=== PATIENT | male | born 1985 | race Caucasian/White ===

== ENCOUNTER 2018-03-11 02:16 | Emergency (ER) | payer SELFPAY ==
[2018-03-11 02:26] VITALS: BP 154/96; TEMP 98.1; BMI 32.3
--- NOTE | 2018-03-11 02:34 | PDOC ---
History of Present Illness - General Chief Complaint: Psychiatric Stated Complaint: DIFFICULTY SLEEPING Time Seen by Provider: 03/11/18 02:19 History Source: Patient Exam Limitations: No Limitations - History of Present Illness Initial Comments: 03/11/18 02:37 Pt took 4 XTC pills and 1 Tenzin over 24hrs ago, and still is tachy and anxious. Past History - Travel Traveled outside of the country in the last 30 days: No Close contact w/someone who was outside of country & ill: No - Past Medical History Allergies/Adverse Reactions: Allergies Allergy/AdvReac Type Severity Reaction Status Date / Time No Known Allergies Allergy Verified 06/25/13 13:50 Home Medications: Ambulatory Orders NK [No Known Home Medication] 03/11/18 GI Disorders: Yes (CROHN'S) Psychiatric Problems: Yes (ANXIETY) - Immunization History Immunization Up to Date: No - Suicide/Smoking/Psychosocial Hx Smoking History: Current some day smoker Have you smoked in the past 12 months: Yes Number of Cigarettes Smoked Daily: 20 If you are a former smoker, when did you quit?: T 'Breaking Loose' booklet given: 07/05/13 Hx Alcohol Use: No Drug/Substance Use Hx: No Substance Use Type: None Hx Substance Use Treatment: No Review of Systems - Review of Systems Able to Perform ROS?: Yes Is the patient limited Icelandic proficient: No Constitutional: No: Symptoms Reported, See HPI, Chills, Diaphoresis, Fever, Loss of Appetite, Malaise, Night Sweats, Weakness, Weight Stable, Unintentional Wgt. Loss, Unexplained wgt Loss, Other HEENTM: No: Symptoms Reported, See HPI, Eye Pain, Blurred Vision, Tearing, Recent change in vision, Double Vision, Cataracts, Ear Pain, Ocular Prothesis, Ear Discharge, Nose Pain, Nose Congestion, Tinnitus, Nose Bleeding, Hearing Loss , Throat Pain, Throat Swelling, Mouth Pain, Dental Problems, Difficulty Swallowing, Mouth Swelling, Other Respiratory: No: Symptoms reported, See HPI, Cough, Orthopnea, Shortness of Breath, SOB with Exertion, SOB at Rest, Stridor, Wheezing, Productive cough, Hemoptysis, Other Cardiac (ROS): Yes: Palpitations. No: Symptoms Reported, See HPI, Chest Pain, Edema, Irregular Heart Rate, Lightheadedness, Syncope, Chest Tightness, Other ABD/GI: No: Symptoms Reported, See HPI, Abdominal Distended, Abd. Pain w/ defecation, Blood Streaked Bowels, Constipated, Diarrhea, Difficulty Swallowing , Nausea, Poor Appetite, Poor Fluid Intake, Rectal Bleeding, Vomiting, Indigestion, Abdominal cramping, Tarry Stools, Other : No: Symptoms Reported, See HPI, Burning, Dysuria, Discharge, Frequency, Flank Pain, Hematuria, Incontinence, Pain, Urgency, Testicular Mass, Testicular Swelling, Lesions, Testicular Pain, Other Musculoskeletal: No: Symptoms Reported, See HPI, Back Pain, Gout, Joint Pain, Joint Swelling, Muscle Pain, Muscle Weakness, Neck Pain, Joint Stiffness, Other Integumentary: No: Symptoms Reported, See HPI, Bruising, Change in Color, Change in Hair/Nails, Dryness, Erythema, Flushing, Lesions, Lumps, Pallor, Pruritus, Rash, Sweating, Other Psychiatric: Yes: Anxiety, Sleep Pattern Change. No: Depression, Frequent Crying, Stressors, Emotional Problems, Mood Swings, Change in Appetite, Other Endocrine: No: Symptoms Reported, See HPI, Excessive Sweating, Flushing, Intolerance to Cold, Intolerance to Heat, Increased Hunger, Increased Thirst, Increased Urine, Unexplained Weight Gain, Unexplained Weight Loss, Change in Weight, Other Hematologic/Lymphatic: No: Symptoms Reported, See HPI, Anemia, Blood Clots, Easy Bleeding, Easy Bruising, Bleeding Diathesis, Lymph Node Abnormalities, Swollen Glands, Other *Physical Exam - Physical Exam General Appearance: Yes: Nourished, Appropriately Dressed. No: Apparent Distress HEENT: positive: EOMI, DARCIE, Normal ENT Inspection, Normal Voice, Symmetrical, TMs Normal, Pharynx Normal. negative: Pale Conjunctivae, Photophobia, Scleral Icterus (R), Scleral Icterus (L), Muffled/Hoarse voice, Pharyngeal Erythema, Tonsillar Exudate, Tonsillar Erythema, Nasal Congestion, Rhinorrhea, Sinus Tenderness, Orbits, Hearing Decreased, Hearing Grossly Normal, TM Bulging, TM Dull, TM Erythema, Lesions, Barrett, Excessive drooling, Thrush, Other Neck: positive: Trachea midline, Normal Thyroid, Supple Respiratory/Chest: positive: Lungs Clear, Normal Breath Sounds Cardiovascular: positive: Regular Rate, S1, S2, Tachycardia. negative: Regular Rhythm, Edema, JVD, Murmur, Bradycardia, Diastolic Murmur, Systolic Murmur, Gallop/S3, Gallop/S4, Irregularly Irregular, Irregular, Other Gastrointestinal/Abdominal: positive: Normal Bowel Sounds, Flat, Soft. negative : Tender, Organomegaly, Pulsatile Mass, Increased Bowel Sounds, Decreased BS, Protuberent, Distended, Guarding, Rebound, Tenderness, Hernia, Mass, Hepatomegaly, Spleenomegaly, Other Musculoskeletal: positive: Normal Inspection Extremity: positive: Normal Capillary Refill Integumentary: positive: Normal Color, Dry, Warm Neurologic: positive: scientific database curator II-XII NML intact, Fully Oriented, Alert, Normal Mood/ Affect, Normal Response, Motor Strength 07/28 ED Treatment Course - LABORATORY CBC & Chemistry Diagram: 03/11/18 02:33 03/11/18 02:33 Medical Decision Making - Medical Decision Making 03/11/18 02:34 Pt used 4 MDMA pills 29 hrs ago 9PM on Sat. Then at 2AM Sunday, 24 hrs ago, he took a "tenzin"pill and that was extrememly strong, and since then pt has been high and unable to sleep and anxious and he has been seing things "visuals" when he closes his eyes. No visual hallucinations or auditory hallucinations. He has a hx of Crohn's dz. He was treated 5 yrs ago ane he states that ever since he quit smoking, his Crohn's flares have subsided. 03/11/18 02:36 Pt has had beef and rice to eat since Sat night. He is likely dehydrated. HR is 112. Labs will be sent and pt will be hydrated with 1L NSS. Then he will be reevaluated. 03/11/18 04:02 Labs are normal; pt feels better with 1L IV NSS and he will be discharged home. 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
[2018-03-11 02:52] VITALS: PULSE 101
[2018-03-11 03:14] LABS: BASO % 0.4 % (0-2.0); EOS % 0.7 % (0-4.5); HEMATOCRIT 43.1 % (35.4-49); HEMOGLOBIN 15.1 GM/dL (11.7-16.9); MCH 28.8 pg (25.7-33.7); MCHC 35.1 g/dl (32.0-35.9); MEAN CELL VOLUME 82.1 fl (80-96); MEAN PLT VOLUME 7.4 fl (7.5-11.1); MONO % 8.4 % (3.8-10.2); NEUT % 69.5 % (42.8-82.8); PLATELET COUNT 297 K/MM3 (134-434); RBC 5.25 M/mm3 (4.00-5.60); WHITE BLOOD COUNT 7.4 K/mm3 (4.0-10.0)
[2018-03-11 03:33] LABS: INR 1.05 (0.83-1.09); PROTHROMBIN TIME (PATIENT) 12.4 SEC (9.7-13.0)
[2018-03-11 04:00] LABS: ALBUMIN 4.2 g/dl (3.4-5.0); ALK PHOS 69 U/L (45-117); ANION GAP 6 MMOL/L (8-16); BILIRUBIN,TOTAL 0.5 mg/dL (0.2-1); BLOOD UREA NITROGEN 14 mg/dL (7-18); CALCIUM 8.9 mg/dL (8.5-10.1); CHLORIDE 104 mmol/L (98-107); CO2 29 mmol/L (21-32); CREATININE 0.9 mg/dL (0.55-1.3); GLUCOSE,RANDOM 120 mg/dL (74-106); POTASSIUM 4.4 mmol/L (3.5-5.1); SGOT/AST 13 U/L (15-37); SGPT/ALT 24 U/L (13-61); SODIUM 138 mmol/L (136-145); TOT PROT 7.7 g/dl (6.4-8.2)
--- NOTE | 2018-03-11 09:58 | EKG ---
Test Reason : Blood Pressure : / mmHG Vent. Rate : 101 BPM Atrial Rate : 101 BPM P-R Int : 164 ms QRS Dur : 090 ms QT Int : 340 ms P-R-T Axes : 044 042 027 degrees QTc Int : 440 ms SINUS TACHYCARDIA OTHERWISE NORMAL ECG NO PREVIOUS ECGS AVAILABLE Confirmed by DIANE BUCKLEY MD ([id number]) on 03/11/2018 9:57:36 AM Referred By: MD NEWTON Confirmed By:DIANE BUCKLEY MD
== END 2018-03-11 04:07 | disposition home or self-care (01) ==
LOC: FER 02:16
DX: F15.980 Other stimulant use, unspecified with stimulant-induced anxiety disorder (principal); K50.90 Crohn's disease, unspecified, without complications; F17.210 Nicotine dependence, cigarettes, uncomplicated
CPT/HCPCS: 36415; 80053; 80307; 82550; 82553; 85025; 85610; 93005; 99283-25

== ENCOUNTER 2018-03-12 07:08 | Emergency (ER) | payer SELFPAY ==
[2018-03-12 07:18] VITALS: BP 135/86; PULSE 88; TEMP 98.4; BMI 32.3
--- NOTE | 2018-03-12 08:42 | PDOC ---
History of Present Illness - General Chief Complaint: Substance Abuse Stated Complaint: TROUBLE SLEEPING Time Seen by Provider: 03/12/18 07:18 - History of Present Illness Initial Comments: 03/12/18 08:42 32 years old past medical history significant for anxiety was on sertraline but has been off it for one year has occasional use of MDMA approximately once a month on Sunday evening he used more than he normally does presented to the emergency Department first on Sunday morning secondary to anxiety inability to sleep and visual hallucinations only when he closes his eyes but no suicidal or homicidal ideation. Return again to the emergency department yesterday for the same symptomatology but decided not to register and now presents for third time to the emergency department for the same symptoms. Again denies any suicidal ideation or homicidal ideation denies being risk to himself or others. Is currently staying with his parents simply has not been able to sleep in the last 2-1/2 days. Symptoms are persistent concent moderate severity with no exacerbating or relieving factors. Past History - Past Medical History Allergies/Adverse Reactions: Allergies Allergy/AdvReac Type Severity Reaction Status Date / Time No Known Allergies Allergy Verified 03/12/18 07:08 Home Medications: Ambulatory Orders Quetiapine Fumarate "Xr" [Seroquel Xr -] 50 mg PO BID #5 tablet 03/12/18 COPD: No GI Disorders: Yes (CROHN'S) Psychiatric Problems: Yes (ANXIETY) - Surgical History Abdominal Surgery: Yes (ILLEOSTOMY AND REVERSAL) - Immunization History Immunization Up to Date: No - Suicide/Smoking/Psychosocial Hx Smoking History: Never smoked Have you smoked in the past 12 months: Yes Number of Cigarettes Smoked Daily: 20 If you are a former smoker, when did you quit?: T 'Breaking Loose' booklet given: 07/05/13 Hx Alcohol Use: Yes Drug/Substance Use Hx: Yes Substance Use Type: None Hx Substance Use Treatment: No Review of Systems - Review of Systems Comments:: 03/12/18 08:43 ROS: A complete review of 10 out of 10 review of systems is taken and is negative apart from what is previously mentioned below and in the HPI. *Physical Exam - Vital Signs Last Vital Signs Temp Pulse Resp BP Pulse Ox 98.4 F 88 18 135/86 100 03/12/18 07:08 03/12/18 07:08 03/12/18 07:08 03/12/18 07:08 03/12/18 07:08 - Physical Exam Comments: 03/12/18 08:44 Vitals: Triage Vital reviewed General Appearance: no acute distress, well nourished well developed, Head: Atraumatic, Eyes: Pupils equal reactive round, extraocular movement intact Cardiac: Regular rate and rhythym, no murmurs, no rubs, no gallops, Lungs: Clear to auscultation bilateral, good air movement bilaterally, Extremities: Full range of motion to all extremities, no cyanosis, clubbing, or edema Skin: Warm and dry, no rashes or lesions, no rash, no petechiae Neuro: AOX3; Cranial Nerves 2-12 grossly intact, Strength intact to all extremities, Sensation intact to all extremities,gait normal Psych: anxious, but appropriate, denies SI/HI/AH, +VH only when closing eyes Moderate Sedation - Procedure Monitoring Vital Signs: Procedure Monitoring Vital Signs Temperature 98.4 F 03/12/18 07:08 Pulse Rate 88 03/12/18 07:08 Respiratory Rate 18 03/12/18 07:08 Blood Pressure 135/86 03/12/18 07:08 O2 Sat by Pulse Oximetry (%) 100 03/12/18 07:08 Medical Decision Making - Medical Decision Making 03/12/18 08:45 2-1/2 days of insomnia and anxiety secondary to recent MDMA use. No suicidal ideation/ homicidal ideation occasional visual hallucinations but only when patient close his eyes. Case discussed with psychiatry , no indication for psychiatric admission at this time patient is not harm to himself or others we will treat with short three-day course of Seroquel to help patient sleep he will be staying with his parents during this period hopefully symptomatology improves once patient is able to sleep for a few days if not patient will return to the emergency department for official psychiatric consultation Findings, the need for follow-up and strict return instructions discussed with patient. 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 Same tomorrow. Then 1 tab at night on the third night. If you're still not sleeping or continue to have hallucinations please return to the emergency department. If if any thoughts of hurting your self or any one else please come to the emergency department immediately. - Post Discharge Activity
[2018-03-12 09:41] LABS: COCAINE, UR NEGATIVE ng/ml (CUTOFF=300); METHADONE, UR NEGATIVE ng/ml (CUTOFF=300); OPIATES, URI NEGATIVE ng/ml (CUTOFF=300); PHENCYCLIDINE,URINE NEGATIVE ng/ml (CUTOFF=25); URINE BARBITURATES NEGATIVE ng/ml (CUTOFF=200); URINE BENZODIAZEPINES NEGATIVE ng/ml (CUTOFF=200)
[2018-03-12 10:16] LABS: URINE AMPHETAMINES POSITIVE ng/ml (CUTOFF=500)
== END 2018-03-12 08:51 | disposition home or self-care (01) ==
LOC: FER 07:08
DX: G47.00 Insomnia, unspecified (principal); R44.1 Visual hallucinations; F15.980 Other stimulant use, unspecified with stimulant-induced anxiety disorder; Z87.891 Personal history of nicotine dependence; F41.9 Anxiety disorder, unspecified; K50.90 Crohn's disease, unspecified, without complications
CPT/HCPCS: 80307; 99282-25